=== PATIENT | female | born 1970 | race Caucasian/White ===

== ENCOUNTER 2018-05-16 06:38 | Emergency (ER) | payer MEDICAID ==
[~2018-05-16] VITALS: Ht 172.7 cm; Wt 68.2 kg
[2018-05-16 06:44] VITALS: Ht 172.7 cm; Wt 68.2 kg
[2018-05-16] MEDS ORDERED: ALBUTEROL SULF8.5 GM INH (06:55)
[2018-05-16] MEDS ORDERED: FLUTICASONE PRO16 GM NASAL (06:55)
[2018-05-16] MEDS ORDERED: PREDNISONE20 MG PO (06:56)
[2018-05-16] MEDS ORDERED: ZOLOFT50 MG PO (06:56)
[2018-05-16] MEDS ORDERED: MINIPRESS1 MG (06:56)
[2018-05-16] MEDS ORDERED: PROPRANOLOL HCL20 MG PO (06:57)
[2018-05-16 09:55] VITALS: BP 95/53
== END 2018-05-16 09:55 | disposition home or self-care (01) ==
LOC: D.ER 06:38
DX: T50.995A Adverse effect of other drugs, medicaments and biological substances, initial encounter (principal); Y92.89 Other specified places as the place of occurrence of the external cause; I95.2 Hypotension due to drugs